=== PATIENT | female | born 1985 | race Caucasian/White ===

== ENCOUNTER → 2017-08-27 | Outpatient (CLI) | payer OTHER ==
[2016-08-28 14:21] VITALS: BP 136/83
[2017-08-27 08:48] LABS: BASOPHILS # (AUTO) 0.1 X10^3/uL (0.0-0.1); EOSINOPHILS # (AUTO) 0.2 x10^3/uL (0.0-0.2); EOSINOPHILS % (AUTO) 2.1 % (0.9-2.9); HEMOGLOBIN 12.5 g/dL (12.0-16.0); LYMPHOCYTES # (AUTO) 1.8 X10^3/uL (1.3-2.9); LYMPHOCYTES % (AUTO) 22.5 % (21.0-51.0); MEAN CORPUSCULAR HEMOGLOBIN 28.2 pg (27.0-34.0); MEAN CORPUSCULAR HGB CONC 34.6 g/dL (33.0-35.0); MEAN CORPUSCULAR VOLUME 81.4 fL (80.0-100.0); MEAN PLATELET VOLUME 8.3 fL (7.4-11.0); MONOCYTES # (AUTO) 0.5 x10^3/uL (0.3-0.8); MONOCYTES % (AUTO) 6.4 % (0.0-13.0); NEUTROPHILS # (AUTO) 5.4 x10^3/uL (2.2-4.8); PLATELET COUNT 253 X10^3/uL (150.0-450.0); RED BLOOD COUNT 4.43 X10^6/uL (3.5-5.4); RED CELL DISTRIBUTION WIDTH 13.1 % (11.6-16.5)
[2017-08-27 09:26] LABS: ALANINE AMINOTRANSFERASE 45 Units/L (12-78); ALBUMIN 3.5 g/dL (3.4-5.0); ALKALINE PHOSPHATASE 66 Units/L (46-116); ASPARTATE AMINO TRANSFERASE 29 Units/L (15-37); BLOOD UREA NITROGEN 16 mg/dL (7-18); CALCIUM 8.6 mg/dL (8.5-10.1); CARBON DIOXIDE 30.2 mmol/L (21-32); CHLORIDE 105 mmol/L (98-107); CHOL/HDL RATIO 3.4 (0.0-5.0); CHOLESTEROL 144 mg/dL (0-200); CREATININE 0.91 mg/dL (0.55-1.02); HDL CHOLESTEROL 42 mg/dL (40-60); SODIUM 141 mmol/L (136-145); TOTAL PROTEIN 6.6 g/dL (6.4-8.2); TRIGLYCERIDES 118 mg/dL (0-150); TSH (3RD GENERATION) 0.994 uIU/mL (0.358-3.74); eGFR BLACK RACES > 60 (>60); eGFR NON BLACK RACES > 60 (>60)
== END ==
LOC: LAB 08:20
PROVIDERS: ATTEND Psychiatry & Neurology Psychiatry
DX: F31.81 Bipolar II disorder (principal); F41.8 Other specified anxiety disorders
CPT/HCPCS: 36415; 80053; 80061; 84443; 85025